=== PATIENT | male | born 1995 | race Asian ===

== ENCOUNTER 2018-08-03 19:29 | Emergency (ER) | payer OTHER ==
[~2018-08-03] VITALS: Ht 170.2 cm; Wt 76.8 kg
--- NOTE | 2018-08-03 19:45 | NUR ---
C COLLAR APPLIED IN TRIAGE
--- NOTE | 2018-08-03 21:26 | NUR ---
PT. TO X-RAY AT THIS TIME.
--- NOTE | 2018-08-03 22:12 | NUR ---
KNEE IMMOBILIZER TO RIGHT KNEE PER CARRIE.
[2018-08-03 22:15] VITALS: BP 130/83
== END 2018-08-03 22:21 | disposition home or self-care (01) ==
LOC: ED 22:05
DX: S16.1XXA Strain of muscle, fascia and tendon at neck level, initial encounter (principal); S50.12XA Contusion of left forearm, initial encounter; S60.212A Contusion of left wrist, initial encounter; G89.11 Acute pain due to trauma; M25.561 Pain in right knee; V89.2XXA Person injured in unspecified motor-vehicle accident, traffic, initial encounter; Y93.89 Activity, other specified; Y92.410 Unspecified street and highway as the place of occurrence of the external cause; Y99.8 Other external cause status
CPT/HCPCS: 72125; 99284